=== PATIENT | female | born 1970 | race Caucasian/White ===

== ENCOUNTER 2024-04-04 09:01 | Emergency (ER) | payer OTHER, SELFPAY ==
[2024-04-04] VITALS (8 sets, daily range): BP systolic 72–104; BP diastolic 64–80; PULSE 86–196; BMI 23.7
--- NOTE | 2024-04-04 09:14 | ED.GENMED ---
History of Present Illness
General
Chief Complaint: Fainting/Passed Out
Source: patient and spouse
Exam Limitations: none
Time Seen by Provider: 04/04/24 09:12
Nursing documentation reviewed up to this point in time: agreed with
History of Present Illness
History of Present Illness:
53-year-old female w h/o migraines presents for near syncopal episode yesterday 2 pm. Drank Ensure Protein shake on way to store. Wasn't feeling well since yesterday morning, they decided to go out and get some fresh air and drove to store.
Was standing in line at store, felt faint, store employee there, she told that person she has to go out to get some fresh air, employee came around the counter, pt faltered, was held up and walked outside where was waiting in the car. He is
at bedside and states 'She was so weak I had to lift her into the car.'
On way home 'my whole body felt extremely hot' and she broke out into a drenching sweat.
She was able to walk up stairs at home and went to bed. Laying down felt better, felt faint with standing.
At this time pt has 'that feeling' in her throat, denies lightheadedness but feels 'off' when she stands and walks around.
Pt states she didn't feel well since yesterday a.m. Had 'pressure, heavy feeling in my throat.' Had nausea all day yesterday with poor appetite and then all through the night with this feeling in her throat and nausea, felt like she had to burp a
lot, got some relief with knees up to chest, forcing out a burp, tasting bile and the throat pressure would be relieved for a while.
Denies SOB, diarrhea. and son recently had Flu
Past History
Past History
ED Past Medical History: Other (Migraines)
ED Past Surgical History: Orthopedic
Social History
Tobacco: Non-smoker
Alcohol: Occasional
Personal:
Living: with family
Employment: Employed
Review of Systems
Review of Systems
Allergies reviewed?: Yes
All Other Systems: ROS reviewed and negative except as documented in HPI and ROS
Constitutional: Reports fatigue; Denies fever or chills
EENT: Reports sore throat (Pressure, heavy feeling in throat)
Respiratory: Denies cough or trouble breathing
Cardiac: Denies chest pain or diaphoresis
ABD/GI: Reports nausea and vomiting (Or other regurgitating sour material with feeling like she had to burp, when she burps throat pressure is relieved for short period); Denies abdominal pain, bloody stools or black stools
: Denies dysuria, frequency or difficulty voiding
Musculoskeletal: Reports no symptoms
Skin: Reports no symptoms
Neurological: Reports no symptoms
Phy Exam
Physical Exam
Physical Exam:
GENERAL: No acute distress. A&Ox3.
CONSTITUTIONAL: Afebrile.
EYES: clear, conjunctivae normal
ENMT: moist mucus membranes, Pharynx nl
RESPIRATORY: Regular respirations, nonlabored, lungs clear.
CARDIOVASCULAR: Regular rate and rhythm, no murmurs, no rubs.
GI: Soft, nontender, normal BS
MUSCULOSKELETAL: Moves with ease. Well perfused.
SKIN: Warm, dry, pink
PSYCH: Normal mood and affect. Well kept, interactive and appropriate
NEUROLOGIC: Awake, alert and oriented. Speech clear. Strength equal throughout. Cranial nerves II through XII intact. No focal neurological deficits
Course
Orders/Labs/Results
Orders:
Orders
04/04/24 09:25
Electrocardiogram (*1) Urgent
Reason for Study: Chest Pain
04/04/24 09:26
EKG- Treatment ONCE
04/04/24 09:27
Test Result ONCE
04/04/24 09:36
CR Chest - 2 Views Urgent
Comment:
Reason For Exam: pain in throat, near syncope
04/04/24 09:53
COVID-19 Antigen Urgent
Source: Nasal Swab
Complete Blood Count/With Diff Urgent
Comprehensive Metabolic Panel Urgent
HCG, Serum Qualitative Screen Urgent
Troponin I Urgent
Urinalysis Reflex To Culture Urgent
Date Specimen was Collected: 04/04/24
Time Specimen was Collected: 09:50
INF RAPID [Influenza A+B Rapid Molecular] Urgent
LIZBETH Source: Nasal Swab
Specimen Description:
04/04/24 11:35
Acetaminophen [Tylenol] 650 mg .ROUTE .STK-MED ONE
04/04/24 11:42
Ketorolac [Toradol] 15 mg .ROUTE .STK-MED ONE
04/04/24 11:43
Ketorolac [Toradol] 15 mg IV NOW STA
Abnormal Lab Results
04/04/24
09:53
WBC 3.0 L 10^3/uL
(4.8-10.8)
Absolute Lymphs (auto) 0.2 L 10^3/uL
(1.2-3.4)
Neutrophils % 78.9 H %
(42.2-75.2)
Lymphocytes % 7.9 L %
(20.5-51.1)
Monocytes % 12.2 H %
(1.7-9.3)
Sodium 132 L mmol/L
(135-145)
Chloride 97 L mmol/L
(98-107)
BUN 18 H mg/dl
(7-17)
04/04/24 09:53
04/04/24 09:53
Vital Signs
Initial and Last Documented VS:
Initial Vital Signs
Temp Pulse Resp BP Pulse Ox
97.5 F 96 16 104/80 99
04/04/24 09:04 04/04/24 09:04 04/04/24 09:04 04/04/24 09:04 04/04/24 09:04
Last Documented Vital Signs
Temp Pulse Resp BP Pulse Ox
97.5 F 91 10 90/67 100
04/04/24 09:04 04/04/24 10:33 04/04/24 10:33 04/04/24 11:39 04/04/24 11:45
MDM/Problems Addressed
Differential Diagnosis Includes:
GERD, MA, vasovagal episode, dehydration
MDM/Problems Addressed:
53-year-old female w h/o migraines presents for near syncopal episode yesterday 2 pm. Drank Ensure Protein shake on way to store. Wasn't feeling well since yesterday morning, they decided to go out and get some fresh air and drove to store.
Was standing in line at store, felt faint, store employee there, she told that person she has to go out to get some fresh air, employee came around the counter, pt faltered, was held up and walked outside where was waiting in the car. He is
at bedside and states 'She was so weak I had to lift her into the car.'
On way home 'my whole body felt extremely hot' and she broke out into a drenching sweat.
She was able to walk up stairs at home and went to bed. Laying down felt better, felt faint with standing.
At this time pt has 'that feeling' in her throat, denies lightheadedness but feels 'off' when she stands and walks around.
Pt states she didn't feel well since yesterday a.m. Had 'pressure, heavy feeling in my throat.' Had nausea all day yesterday with poor appetite and then all through the night with this feeling in her throat and nausea, felt like she had to burp a
lot, got some relief with knees up to chest, forcing out a burp, tasting bile and the throat pressure would be relieved for a while.
Denies SOB, diarrhea. and son recently had Flu
EKG: NSR
11:15 AM:
CBC: WBC 3.0 w elevated monos (likely viral infection)
CMP: No clinically significant abnormality
Troponin normal
UA negative
COVID-negative
Flu negative
Chest x-ray NAD
Orthostatics negative
Most likely a viral illness with a vasovagal episode
11:40
Patient with mild headache at this time, IV Toradol ordered
Pt stable for discharge
*EKG
EKG Intrepretation Date: 04/04/24
Interpretation: normal
Heart Rate: 89
Rate: normal
Rhythm: sinus
[place]: normal axis
Interval: normal interval
QRS Pattern: normal QRS
Ischemia: no ischemia
*Critical Care Note
Total Time (30-74mins, 75-104mins- exclusive of procedures): Not Applicable
ED Attending Note
-
Portions of this chart may have been created with voice recognition software.� Occasional wrong word or��sound alike� substitutions may have occurred due to the inherent limitations of voice recognition software.
Discharge Plan
Departure
Patient Disposition: Home (Routine Discharge)
Date of Disposition: 04/04/24
Time of Disposition: 11:42
Patient with high blood pressure during this ER visit?: No
Condition: Good
Discharge Problem:
Vasovagal episode, Near syncope
Instructions: Vasovagal Response, Syncope (Fainting) (DC)
Referrals:
Your, Doctor [Other] - As needed
Activity Restrictions/Additional Instructions:
As we discussed, the fainting episode is most likely a vasovagal response.
You most likely have a mild viral illness
Nothing worrisome in your workup here today.
See your doctor later this week if you are not feeling much better within the next 2 or 3 days.
Drink plenty of fluids
Go from laying to sitting and sitting to standing slowly
Interventions
Interventions:
*Risk Screen - Suicide Last Done: 04/04/24 12:30
*General Assessment Last Done: 04/04/24 09:49
*Neglect/Abuse Screening Last Done: 04/04/24 12:30
ED- Fall Risk Assessment Last Done: 04/04/24 12:30
*ED COVID-19 Vaccine History Last Done: 04/04/24 09:49
*Nursing Disposition Last Done: 04/04/24 12:30
ED- Cardiac Assessment Last Done: 04/04/24 09:30
ED- Neurological Assessment Last Done: 04/04/24 09:30
Discharge Date and Time
Discharge Date/Time: 04/04/24 12:30
Print Language: [id number]
[2024-04-04 10:05] LABS: % Basophils 0.3 % (0-2); % Eosinophils 0.7 % (0-6); % Lymphocytes 7.9 % (20.5-51.1); % Monocytes 12.2 % (1.7-9.3); % Neutrophils 78.9 % (42.2-75.2); Absolute Lymphocytes 0.2 10^3/uL (1.2-3.4); Absolute Monocytes 0.4 10^3/uL (0.1-0.6); Absolute Neutrophils 2.4 10^3/uL (1.4-6.5); Hematocrit 39.5 % (37.0-47.0); Hemoglobin 13.2 g/dL (12.0-16.0); Mean Corp Hgb Conc. 33.4 g/dL (33.0-37.0); Mean Corpuscular Hgb 29.3 pg (27.0-31.0); Mean Corpuscular Volume 87.8 fL (81.0-99.0); Mean Platelet Volume 9.4 fL (7.4-10.4); Nucleated Red Blood Cells % 0 %; Platelet Count 203 10^3/uL (130-400); Red Cell Dist. Width 12.6 % (11.5-14.5)
[2024-04-04 10:14] LABS: Urine Albumin Negative (Neg - Trace); Urine Bilirubin Negative (Negative); Urine Character Clear (Clear); Urine Color Yellow; Urine Glucose Negative (Negative); Urine Ketone Negative (Negative); Urine Leukocyte Negative (Negative); Urine Nitrite Negative (Negative); Urine Occult Blood Negative (Negative); Urine Urobilinogen Negative (Neg - 1+)
[2024-04-04 10:17] LABS: HCG, Serum Qualitative Screen Negative
[2024-04-04 10:22] LABS: ALT (SGPT) 21 U/L (0-35); AST (SGOT) 27 U/L (14-36); Albumin 4.5 g/dl (3.5-5.0); Alkaline Phosphatase 63 U/L (38-126); Blood Urea Nitrogen 18 mg/dl (7-17); Calcium 9.4 mg/dl (8.4-10.2); Carbon Dioxide 27 mmol/L (22-30); Chloride 97 mmol/L (98-107); Estimated Creatinine Clearance 67 ml/min; Glucose 94 mg/dl (70-99); Sodium 132 mmol/L (135-145); Total Bilirubin 0.9 mg/dl (0.2-1.3); eGFR > 60.00
[2024-04-04 10:32] LABS: COVID-19 Antigen Negative (Negative); Troponin I < 0.012 ng/ml
[2024-04-04] MEDS: TORADOL 15 MG IV (11:43)
== END 2024-04-04 12:30 | disposition home or self-care (01) ==
LOC: EMR 09:01
PROVIDERS: Registered Nurse; EMERGENCY PHYSICIAN Student in an Organized Health Care Education/Training Program; FAMILY PHYSICIAN Family Medicine
DX: R55 Syncope and collapse (principal); Z11.52 Encounter for screening for COVID-19
CPT/HCPCS: 99285; 96374; 71046; 80053; 81003; 84484; 84703; 85025; 87502; 87811; 93005